=== PATIENT | female | born 1970 | race Hispanic/Latino ===

== ENCOUNTER 2017-01-29 05:09 | Emergency (ER) | payer OTHER ==
[2017-01-29 06:16] LABS: Anion Gap 21 mmol/L; BUN/Creatinine Ratio 15; Blood Urea Nitrogen 9 mg/dL (7-17); Calcium 8.8 mg/dL (8.4-10.2); Carbon Dioxide 19 mmol/L (22-30); Chloride 102.2 mmol/L (98-107); Glucose 114 mg/dL (65-100); Sodium 138 mmol/L (137-145)
[2017-01-29 06:18] LABS: Basophils % (Auto) 0.5 % (0.0-1.8); Eosinophils % (Auto) 0.9 % (0.0-4.3); Hematocrit 42.7 % (30.3-42.9); Mean Corpuscular HGB Conc 33 % (30-34); Mean Corpuscular Hemoglobin 31 pg (28-32); Mean Corpuscular Volume 95 fl (79-97); Platelet Count 275 K/mm3 (140-440); Red Blood Count 4.51 M/mm3 (3.65-5.03); Red Cell Distribution Width 14.4 % (13.2-15.2); White Blood Count 8.2 K/mm3 (4.5-11.0)
--- NOTE | 2017-01-29 06:20 | Emergency Department Report ---
ED Psych HPI - General Chief Complaint: Psych Stated Complaint: MH EVAL Time Seen by Provider: 01/29/17 06:19 Source: patient Mode of arrival: Ambulatory - History of Present Illness Initial Comments: 46-year-old female with bipolar disorder. She presents with pressurized speech and flight of ideas. She is somewhat bothering about the laboratory analyzed and her instillation of them. She does appear to have a lot of delusional content. She is not actively hallucinating. However, she does appear to be suffering from a bipolar juanpablo and is likely unable to provide some self care. MD Complaint: other -: unknown Associated Psychiatric Symptoms: delusions, other History of same: Yes Quality: constant Improves With: none Worsens With: none Context: not taking psychiatric (likely noncompliant) Associated Symptoms: other (has some vague somatic delusions) Treatments Prior to Arrival: none - Related Data Previous Rx's Medication Instructions Recorded Last Taken Type HYDROcodone/APAP 7.5-325 [[place] 1 each PO Q6HR PRN #14 tablet 07/05/15 Unknown Rx 7.5/325] Allergies Allergy/AdvReac Type Severity Reaction Status Date / Time No Known Allergies Allergy Unverified 07/05/15 08:57 ED Review of Systems ROS: Stated complaint: MH EVAL Other details as noted in HPI Comment: Unobtainable due to pts medical conditions ED Past Medical Hx - Past Medical History Previous Medical History?: Yes Additional medical history: POSSIBLE ENDOMITOSIS; "on xanax to help me sleep". MS - Surgical History Past Surgical History?: Yes Hx Cholecystectomy: Yes Additional Surgical History: endometrial ablation. tubal ligation. sphincterotomy - Social History Smoking Status: Current Every Day Smoker Substance Use Type: None - Medications Home Medications: Home Medications Medication Instructions Recorded Confirmed Last Taken Type HYDROcodone/APAP 7.5-325 [[place] 1 each PO Q6HR PRN #14 tablet 07/05/15 Unknown Rx 7.5/325] ED Physical Exam - General Limitations: No Limitations General appearance: alert, in no apparent distress - Head Head exam: Present: atraumatic, normocephalic - Eye Eye exam: Present: normal appearance, PERRL, EOMI. Absent: scleral icterus - ENT ENT exam: Present: mucous membranes moist - Neck Neck exam: Present: normal inspection. Absent: tenderness, meningismus - Respiratory Respiratory exam: Present: normal lung sounds bilaterally. Absent: respiratory distress - Cardiovascular Cardiovascular Exam: Present: regular rate, normal rhythm. Absent: systolic murmur, diastolic murmur, rubs, gallop - GI/Abdominal GI/Abdominal exam: Present: soft, normal bowel sounds. Absent: distended, tenderness, guarding, rebound, rigid - Extremities Exam Extremities exam: Present: normal inspection - Back Exam Back exam: Present: normal inspection - Neurological Exam Neurological exam: Present: alert, oriented X3, CN II-XII intact. Absent: motor sensory deficit - Psychiatric Psychiatric exam: Present: agitated, manic - Skin Skin exam: Present: warm, dry, intact, normal color. Absent: rash ED Course Vital Signs 01/29/17 01/29/17 05:19 05:42 Temperature 98 F Pulse Rate 87 Respiratory 18 18 Rate Blood Pressure 124/82 O2 Sat by Pulse 98 98 Oximetry - Reevaluation(s) Reevaluation #1: Patient was not agitated upon my encounter. However perhaps less than an hour later she required chemical sedation per the nursing staff. She was given Geodon and Ativan. She was seen by the mental health counselor and a 1013 was executed. 01/29/17 09:20 ED Medical Decision Making - Lab Data Result diagrams: 01/29/17 05:41 01/29/17 05:41 Laboratory Results - last 24 hr 01/29/17 01/29/17 01/29/17 05:41 05:41 05:41 WBC 8.2 RBC 4.51 Hgb 14.0 Hct 42.7 MCV 95 MCH 31 MCHC 33 RDW 14.4 Plt Count 275 Lymph % (Auto) 19.9 [place] % (Auto) 7.3 Eos % (Auto) 0.9 Baso % (Auto) 0.5 Lymph # 1.6 [place] # 0.6 Eos # 0.1 Baso # 0.0 Seg Neutrophils % 71.4 H Seg Neutrophils # 5.9 Sodium 138 Potassium 4.0 Chloride 102.2 Carbon Dioxide 19 L Anion Gap 21 BUN 9 Creatinine 0.6 L Estimated GFR > 60 BUN/Creatinine Ratio 15 Glucose 114 H Calcium 8.8 Plasma/Serum Alcohol < 0.01 Critical care attestation.: If time is entered above; I have spent that time in minutes in the direct care of this critically ill patient, excluding procedure time. ED Disposition Clinical Impression: Bipolar disorder with severe juanpablo Disposition: DC/TX-65 PSY HOSP/PSY UNIT Is pt being admited?: No Does the pt Need Aspirin: No Condition: Stable Referrals: PRIMARY CAREMD [Primary Care Provider] - 3-5 Days Time of Disposition: 09:20
[2017-01-29 07:39] LABS: Urine Drugs of Abuse Note Disclamer
[2017-01-29] MEDS ORDERED: GEODON IM ONE ×3 (07:45→09:50)
[2017-01-29 07:47] LABS: Bilirubin,Urine NEG (Negative); Blood,Urine NEG (Negative); Ketones,Urine 80 mg/dL (Negative); Leukocyte Esterase,Urine NEG (Negative); Mucus,Urine 1+ /HPF; Nitrite,Urine NEG (Negative); Protein,Urine <15 mg/dL mg/dL (Negative)
[2017-01-29] MEDS ORDERED: ATIVAN ONE (07:48)
[2017-01-29] MEDS ORDERED: ATIVAN IV ONE ×2 (07:55→09:50)
--- NOTE | 2017-01-29 23:19 | Consultation ---
History of Present Illness - Reason for Consult Reason for consult: delusional Medications and Allergies Allergies Allergy/AdvReac Type Severity Reaction Status Date / Time No Known Allergies Allergy Unverified 07/05/15 08:57 Home Medications Medication Instructions Recorded Confirmed Last Taken Type HYDROcodone/APAP 7.5-325 [[place] 1 each PO Q6HR PRN #14 tablet 07/05/15 Unknown Rx 7.5/325] Mental Status Exam - Vital signs Last Vital Signs Temp 98.5 F 01/29/17 21:09 Pulse 83 01/29/17 21:09 Resp 16 01/29/17 21:09 BP 117/58 01/29/17 21:09 Pulse Ox 98 01/29/17 21:09 Results Result Diagrams: 01/29/17 05:41 01/29/17 05:41 Abnormal lab results 01/29/17 01/29/17 Range/Units 05:41 05:41 Seg Neutrophils % 71.4 H (40.0-70.0) % Carbon Dioxide 19 L (22-30) mmol/L Creatinine 0.6 L (0.7-1.2) mg/dL Glucose 114 H (65-100) mg/dL All other labs normal. Assessment and Plan Assessment and plan: CHIEF COMPLAINT IN PATIENTS WORDS: recent relapse on cocaine HISTORY OF PRESENT ILLNESS REQUIRING ADMISSION TO INPATIENT LEVEL OF CARE: (Describe the onset of Illness, Intensity of Symptoms, and Circumstances Leading to Admission) This is a 46-year-old female who presents to [facility] after a recent reduction in sleep and increased delusional thought process. Patient was a very poor historian and disorganized during the interview. She further noted struggling with light sensitivity and some sensory changes on her face. She did not specify further, but did note a history of MS. Last relapse unknown to the patient. PSYCHIATRIC REVIEW OF SYSTEMS: Depression: denies Psychosis: delusional, grandiose Anxiety/ OCD/ PTSD: denies Suicidality: denies SI Violent/ Aggressive Behavior: None reported Functional Impairment: periodic relapse on cocaine CURRENT MEDICATIONS: ( Psychiatric and Non-psychiatric ) xanax ALLERGIES: NKDA PAST PSYCHIATRIC HISTORY: ( Prior Treatment, Precipitating Factors, Diagnosis, and Course of Treatment ) Inpatient: denies Outpatient: notes going to several clinics Prior Self Injurious Behaviors: none Prior Suicide Attempts: denies PAST PSYCHIATRIC MEDICATION TRIALS: unknown MEDICAL HISTORY: (Chronic and Acute Illnesses, Current Medical Treatment, Recent Hospitalizations) notes a history of MS, but history is unconfirmed HISTORY OF TRAUMA/ABUSE: unknown DRUG / ALCOHOL ABUSE HISTORY: positive of benzos and cannabis Detoxification / Withdrawal: no withdrawal symptoms noted on clinical examination SOCIAL HISTORY: (Educational Level, Employment, Support System, Interpersonal Relationships) unknown FAMILY HISTORY:Psychiatric/Substance Abuse Unknown MENTAL STATUS EXAM: Consciousness: sedated General Appearance: poorly groomed Eye Contact: limited Attitude / Behavior: uncooperative Sensorium: confused Psychomotor & Musculoskeletal Activity: PMR Mood: irritable Affect: labile Speech / Language: fluent, increased pace Thought Processes: disorganized, flight of ideas Thought Content: no SI, no HI Perception: No AVH Orientation: person, place, time, date, situation Concentration/Attention: Impaired Judgment What would you do if you smelled smoke in a crowded movie theater?: poor Insight: poor Intelligence Vocabulary, general fund of knowledge, educational level : Average Capacity of ADLs: Independent ADMITTING DIAGNOSES Bipolar Disorder with Psychotic Features v. Psychosis 2/2 General Medical Condition PLAN: Recommend Neurology consult to evaluate patient's claim of MS further or obtain medical history from collateral prior to determine appropriate level of care
--- NOTE | 2017-01-30 12:04 | Progress Note ---
Subjective - Reason for Consult Consult date: 01/30/17 Reason for consult: Psychiatry Follow-up - Chief Complaint Chief complaint: "I finally slept" This is a 46-year-old female who presents to [facility] after a recent reduction in sleep and increased delusional thought process. Today patient is cooperative with a delusional thought process. She was jumping from topic to topic during the interview. She had to be redirected several times to keep her focused. She stated that she want to "chastity" her previous employer because they allowed her to quit her job. She stated not sleeping for several days. When asked about MS and other medical conditions, she stated, "I want to start at [place] to figure things out." She stated getting "some sleep" last night. She admit to being manic, but denies SI/HI's and AVH's. Mental Status Exam - Vital signs Last Vital Signs Temp 98.5 F 01/29/17 21:09 Pulse 83 01/29/17 21:09 Resp 18 01/30/17 12:01 BP 117/58 01/29/17 21:09 Pulse Ox 98 01/30/17 12:01 - Exam Narrative exam: MSE: Appearance: cooperative Behavior: regular eye contact Speech: hyper verbal Mood: elated Affect: euphoric Thought Process: flights of ideas Thought Content: denies HI/SI's and AVH's, grandiose, delusional Motor Activity: ambulatory Cognition: A/Ox 3 Insight: poor Judgment: poor Assessment and Plan Impression: Bipolar DO. Today patient is cooperative with a delusional thought process. Recommendation/Plan: Continue 1013 with placement to inpatient psy setting. Start Depakote 500 mg PO BID for mood. Called her [id number] Sara Georges at [phone] for collateral, no answer but left a message. If patient is still in the ER day 5, VA will be ordered.
[2017-01-30 13:50] LABS: Alanine Aminotransferase 14 units/L (7-56); Alkaline Phosphatase 74 units/L (35-129)
--- NOTE | 2017-01-31 14:25 | Progress Note ---
Subjective - Reason for Consult Consult date: 01/31/17 Reason for consult: Psychiatry Follow-up - Chief Complaint Chief complaint: "Hi" This is a 46-year-old female who presents to [facility] after a recent reduction in sleep and increased delusional thought process. Today patient is cooperative with a delusional thought process. She admitted to being patient at [place] for a manic episode earlier this year. She stated that the "lights and other things" at [facility] causes her medical conditions to exacerbate (delusional). She stated sleeping "about 6 hours last night." She denies SI/HI's and AVH's. She denies any side effects of her medication. Mental Status Exam - Vital signs Last Vital Signs Temp 98.6 F 01/30/17 14:56 Pulse 68 01/30/17 14:56 Resp 18 01/30/17 14:56 BP 138/78 01/30/17 14:56 Pulse Ox 98 01/30/17 14:56 - Exam Narrative exam: MSE: Appearance: cooperative Behavior: regular eye contact Speech: hyper verbal Mood: elated Affect: euphoric Thought Process: flights of ideas Thought Content: denies HI/SI's and AVH's, delusional Motor Activity: ambulatory Cognition: A/Ox 3 Insight: poor Judgment: poor Assessment and Plan Impression: Bipolar DO. Today patient is cooperative with a delusional thought process. Recommendation/Plan: Continue 1013 with placement to inpatient psy setting. Continue Depakote 500 mg PO BID for mood. Called her [id number] Sara Georges at [phone] for collateral, no answer but left a message. If patient is still in the ER day 5, VA will be ordered.
--- NOTE | 2017-02-01 11:31 | Progress Note ---
Subjective - Reason for Consult Consult date: 02/01/17 Reason for consult: Psychiatry Follow-up - Chief Complaint Chief complaint: "I want get better" This is a 46-year-old female who presents to [facility] after a recent reduction in sleep and increased delusional thought process. Today patient is calm and cooperative with a delusional thought process. Per collateral from her brother Dale Avalos at [phone] he stated that his sister has had multiple manic episodes in the past. He stated that the patient was inpatient at [place] this year. He was not able to confirm that she has MS or any other medical conditions. She denies SI/HI's and AVH's. She denies any side effects of her medications. Mental Status Exam - Vital signs Last Vital Signs Temp 98.6 F 01/30/17 14:56 Pulse 68 01/31/17 14:05 Resp 18 01/31/17 14:05 BP 126/74 01/31/17 14:05 Pulse Ox 98 01/31/17 14:05 - Exam Narrative exam: MSE: Appearance: cooperative Behavior: regular eye contact Speech: hyper verbal Mood: elated Affect: euphoric Thought Process: flights of ideas Thought Content: denies HI/SI's and AVH's, delusional Motor Activity: ambulatory Cognition: A/Ox 3 Insight: poor Judgment: poor Assessment and Plan Impression: Bipolar DO. Today patient is cooperative with a delusional thought process. Recommendation/Plan: Continue 1013 with placement to inpatient psy setting. Continue Depakote 500 mg PO BID for mood and start Zyprexa 5 mg PO HS for mood/ psychosis and Cogentin 0.5 mg PO HS for EPS prevention. If patient is still in the ER day 5, VA will be ordered.
[2017-02-01] MEDS: COGENTIN PO SCH (22:23)
--- NOTE | 2017-02-02 10:17 | Progress Note ---
Subjective - Reason for Consult Consult date: 02/02/17 Reason for consult: Psychiatry Follow-up - Chief Complaint Chief complaint: "I feel rested" This is a 46-year-old female who presents to [facility] after a recent reduction in sleep and increased delusional thought process. Today patient is calm and cooperative with a delusional thought process. She is still fixated on suing her previous employer, because they allowed her to quit. Also, she stated having another medical condition (carpal tunnel syndrome). She denies SI/HI's and AVH's. She denies sleep disturbance. She denies any side effects of her medications. Mental Status Exam - Vital signs Last Vital Signs Temp 98 F 02/02/17 05:40 Pulse 76 02/02/17 05:40 Resp 18 02/01/17 12:12 BP 134/77 02/02/17 05:40 Pulse Ox 99 02/01/17 12:12 - Exam Narrative exam: MSE: Appearance: cooperative Behavior: regular eye contact Speech: hyper verbal Mood: "okay" Affect: congruent to mood Thought Process: circumstantial Thought Content: denies HI/SI's and AVH's, delusional Motor Activity: ambulatory Cognition: A/Ox 3 Insight: variable Judgment: variable Assessment and Plan Impression: Bipolar DO. Today patient is cooperative with a delusional thought process. Recommendation/Plan: Continue 1013 with placement to inpatient psy services. Continue Depakote 500 mg PO BID for mood, Zyprexa 5 mg PO HS for mood/psychosis , and Cogentin 0.5 mg PO HS for EPS prevention. If patient is still in the ER day 5, VA will be ordered.
[2017-02-02] MEDS: COGENTIN PO SCH (22:02)
--- NOTE | 2017-02-03 10:28 | Progress Note ---
Subjective - Reason for Consult Consult date: 02/03/17 Reason for consult: Psychiatry Follow-up - Chief Complaint Chief complaint: "I feel like I can be discharged" This is a 46-year-old female who presents to [facility] after a recent reduction in sleep and increased delusional thought process. Today patient is calm and cooperative during the assessment. 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 She denies SI/HI's and AVH's. She denies sleep disturbance. She denies any side effects of her medications. Mental Status Exam - Vital signs Last Vital Signs Temp 98 F 02/03/17 06:14 Pulse 88 02/02/17 20:09 Resp 18 02/02/17 20:09 BP 132/64 02/03/17 06:14 Pulse Ox 97 02/02/17 20:09 - Exam Narrative exam: MSE: Appearance: calm, cooperative Behavior: regular eye contact Speech: regular rate and tone Mood: "okay" Affect: congruent to mood Thought Process: circumstantial Thought Content: denies HI/SI's and AVH's, delusional Motor Activity: ambulatory Cognition: A/Ox 3 Insight: variable Judgment: variable Assessment and Plan Impression: Bipolar DO. Today patient is calm and cooperative during the assessment. Recommendation/Plan: Continue 1013 with placement to inpatient psy services. Continue Depakote 500 mg PO BID for mood, Zyprexa 5 mg PO HS for mood/psychosis , and Cogentin 0.5 mg PO HS for EPS prevention. If patient is still in the ER day 5, VA will be ordered. VA ordered in the AM.
[2017-02-03] MEDS: COGENTIN PO SCH (21:56)
[2017-02-04 07:57] VITALS: BP 139/89
--- NOTE | 2017-02-04 10:15 | Progress Note ---
Subjective - Reason for Consult Consult date: 02/04/17 Reason for consult: Psychiatry Follow-up - Chief Complaint Chief complaint: "I feel really well" This is a 46-year-old female who presents to [facility] after a recent reduction in sleep and increased delusional thought process. Today patient is calm and cooperative during the assessment. She stated that she will followup with outpatient psy services and stay complaint on her medications when discharged. I spoke with her mother in law Sara Georges and her brother Dale Avalos and they will be the patient's support system. She denies SI/HI's and AVH's. She denies depression symptoms. She denies any side effects of her medications. She stated that she slept well last night. Mental Status Exam - Vital signs Last Vital Signs Temp 97.9 F 02/04/17 07:57 Pulse 87 02/04/17 07:57 Resp 18 02/04/17 07:57 BP 139/89 02/04/17 07:57 Pulse Ox 97 02/04/17 07:57 - Exam Narrative exam: MSE: Appearance: calm, cooperative Behavior: regular eye contact Speech: regular rate and tone Mood: "okay" Affect: congruent to mood Thought Process: linear Thought Content: denies HI/SI's and AVH's Motor Activity: ambulatory Cognition: A/Ox 3 Insight: fair Judgment: fair Assessment and Plan Impression: Bipolar DO. Today patient is calm and cooperative during the assessment. VA 68.4. Recommendation/Plan: Rescind 1013. Continue Depakote 500 mg PO BID for mood, Zyprexa 5 mg PO HS for mood/psychosis, and Cogentin 0.5 mg PO HS for EPS prevention. Discussed possible metabolic side effects of Zyprexa with patient. Patient given referral to [facility] for outpatient psy/rehab services.
== END 2017-02-04 14:31 | disposition home or self-care (01) ==
LOC: ED 05:09 → EEVIPCON 05:09 → ED 02-04 14:31
DX: F31.63 Bipolar disorder, current episode mixed, severe, without psychotic features (principal)
CPT/HCPCS: 36415; 80048; 80164; 80307; 81001; 84075; 84450; 84460; 84703; 85025; 87040; 96372; 96374; 99284; G0480; J2060; J3486; 80320; 99283